=== PATIENT | male | born 1955 | race Caucasian/White ===

== ENCOUNTER 2019-12-14 12:59 | Inpatient (IN) | payer OTHER ==
[~2019-12-14] VITALS: Ht 175.3 cm; Wt 58.1 kg
[2019-12-14 13:03] VITALS: BP_SYST 149
[2019-12-14] MEDS ORDERED: OMEP20CA11 PO (14:01)
[2019-12-14] MEDS ORDERED: ALBU90AE PO (14:01)
[2019-12-14] MEDS ORDERED: FOLIC ACID 1 MG, THIAMINE HCL 100 MG, MAGNESIUM SULFATE 1 GM, MVI 10 ML in NACL 0.9% 1,... IV ONE (14:15)
[2019-12-14] MEDS ORDERED: ASPIRIN 81 MG TAB.CHEW PO ONE ×2 (14:30)
[2019-12-14 14:35] LABS: BASOPHILS # (AUTO) 0.1 K/uL (0.0-0.2); BASOPHILS % (AUTO) 1.8 % (0.0-2.0); EOSINOPHILS # (AUTO) 0.4 K/uL (0.0-0.4); EOSINOPHILS % (AUTO) 5.4 % (0.0-4.0); HEMATOCRIT 39.1 % (36-54); HEMOGLOBIN 13.2 g/dL (14.0-18.0); LYMPHOCYTES # (AUTO) 1.8 K/uL (1.0-5.5); LYMPHOCYTES % (AUTO) 24.1 % (20.5-51.5); MEAN CORPUSCULAR HEMOGLOBIN 32 pg (27-31); MEAN CORPUSCULAR HGB CONC 34 % (32-36); MEAN CORPUSCULAR VOLUME 94 fL (79.0-98.0); MONOCYTES # (AUTO) 0.6 K/uL (0.0-1.0); MONOCYTES % (AUTO) 8.7 % (1.7-9.3); NEUTROPHILS # (AUTO) 4.4 K/uL (1.8-7.7); PLATELET COUNT (AUTO) 331 K/uL (130-430); RED BLOOD CELL COUNT(AUTO) 4.14 MIL/uL (4.2-6.2); RED CELL DISTRIBUTION WIDTH 13.5 % (9.0-15.0); WHITE BLOOD COUNT (AUTO) 7.4 K/uL (4.8-10.8)
[2019-12-14 14:36] LABS: CALCIUM 8.8 mg/dL (8.4-11.0); CREATININE 0.71 mg/dL (0.55-1.30); POTASSIUM 3.9 mmol/L (3.5-5.1)
[2019-12-14 14:41] LABS: ALBUMIN 3.7 g/dL (3.4-4.8); TOTAL BILIRUBIN 1.2 mg/dL (0.0-1.0)
[2019-12-14 14:51] VITALS: BP_SYST 132
[2019-12-14 16:02] VITALS: BP_SYST 127
[2019-12-14] MEDS: THIAMINE HCL 100 MG, MAGNESIUM SULFATE 1 GM in NS 100 ML IV SCH (16:45)
[2019-12-14] MEDS: FOLIC ACID 1 MG, MVI 10 ML in NACL 0.9% 1,000 ML IV SCH (16:46)
[2019-12-14] MEDS ORDERED: LORazepam 1 MG TABLET PO PRN (17:45)
[2019-12-14] MEDS ORDERED: LORazepam 2 MG/ML VIAL IVP PRN (17:45)
[2019-12-14] MEDS ORDERED: ALBUTEROL SULFATE 0.083% 2.5 MG/3 ML VIAL.NEB INH PRN (17:45)
[2019-12-14 20:33] LABS: BILIRUBIN,URINE NEGATIVE (NEGATIVE); BLOOD, URINE 2+ (NEGATIVE); CLARITY/URINE CLEAR (CLEAR); COLOR,URINE YELLOW (YELLOW); GLUCOSE,URINE NEGATIVE (NEGATIVE); KETONES,URINE NEGATIVE (NEGATIVE); LEUKOCYTE ESTERASE ,URINE NEGATIVE (NEGATIVE); NITRITE, URINE NEGATIVE (NEGATIVE); PROTEIN URINE NEGATIVE (NEGATIVE); UROBILINOGEN,URINE 0.2 (0.2-1.0)
[2019-12-14 20:43] LABS: BACTERIA,URINE None Seen /HPF (None Seen); MUCUS,URINE None Seen /LPF (None Seen); RBC,URINE 0-3 /HPF (0-3); WBC,URINE NONE SEEN /HPF (0-3)
[2019-12-14 20:44] LABS: BARBITURATE, URINE NEGATIVE (NEG <=200); BENZODIAZEPINE, URINE NEGATIVE (NEG <=150); CANNABINOID, URINE NEGATIVE (NEG <=50); COCAINE, URINE NEGATIVE (NEG <=150); METHAMPHETAMINES SCREEN,URINE NEGATIVE (NEG <=500); OPIATE, URINE NEGATIVE (NEG <=100); PHENCYCLIDINE SCREEN,URINE NEGATIVE (NEG <=25); UR TRICYCLIC ANTIDEPRESSANTS NEGATIVE (NEG <=300); URINE AMPHETAMINE NEGATIVE (NEG <=500); URINE METHADONE NEGATIVE (NEG <=200); URINE OXYCODONE SCREEN NEGATIVE (NEG <=100); URINE PROPOXYPHENE SCREEN NEGATIVE (NEG <=300)
[2019-12-14 22:18] VITALS: BP_SYST 122
[2019-12-15] VITALS (8 sets, daily range): BP systolic 102–131
[2019-12-15 06:40] LABS: BASOPHILS # (AUTO) 0.1 K/uL (0.0-0.2); BASOPHILS % (AUTO) 1.9 % (0.0-2.0); EOSINOPHILS # (AUTO) 0.5 K/uL (0.0-0.4); EOSINOPHILS % (AUTO) 6.7 % (0.0-4.0); HEMATOCRIT 37.8 % (36-54); HEMOGLOBIN 12.8 g/dL (14.0-18.0); LYMPHOCYTES # (AUTO) 2.2 K/uL (1.0-5.5); LYMPHOCYTES % (AUTO) 27.8 % (20.5-51.5); MEAN CORPUSCULAR HEMOGLOBIN 32 pg (27-31); MEAN CORPUSCULAR HGB CONC 34 % (32-36); MEAN CORPUSCULAR VOLUME 94 fL (79.0-98.0); MONOCYTES # (AUTO) 0.8 K/uL (0.0-1.0); MONOCYTES % (AUTO) 10.1 % (1.7-9.3); NEUTROPHILS # (AUTO) 4.3 K/uL (1.8-7.7); NEUTROPHILS % (AUTO) 53.5 % (40.0-70.0); PLATELET COUNT (AUTO) 317 K/uL (130-430); RED BLOOD CELL COUNT(AUTO) 4.01 MIL/uL (4.2-6.2); RED CELL DISTRIBUTION WIDTH 13.2 % (9.0-15.0)
[2019-12-15 06:52] LABS: PROTHROMBIN TIME 10.5 SECS (9.5-12.5)
[2019-12-15 07:04] LABS: ALBUMIN 3.2 g/dL (3.4-4.8); CALCIUM 8.1 mg/dL (8.4-11.0); CREATININE 0.75 mg/dL (0.55-1.30); FREE T4 (FREE THYROXINE) 0.8 ng/dL (0.6-1.6); POTASSIUM 3.9 mmol/L (3.5-5.1); THYROID STIMULATING HORMONE 2.63 uIu/mL (0.34-4.82)
[2019-12-15] MEDS: PANTOPRAZOLE SODIUM 40 MG TAB PO SCH ×2 (09:00→10:57)
[2019-12-15] MEDS: FOLIC ACID 1 MG TABLET PO SCH ×2 (09:00→10:57)
[2019-12-15] MEDS: ASPIRIN 81 MG TABLET(ECOTRIN) PO SCH ×2 (09:00→10:57)
[2019-12-15] MEDS: CHOLECALCIFEROL (VITAMIN D3) 2,000 UNIT TABLET PO SCH ×2 (09:00→10:57)
[2019-12-15] MEDS: THIAMINE HCL 100 MG TABLET PO SCH ×2 (09:00→10:58)
[2019-12-15] MEDS: THIAMINE HCL 100 MG, MAGNESIUM SULFATE 1 GM in NS 100 ML IV SCH (16:48)
[2019-12-15] MEDS: FOLIC ACID 1 MG, MVI 10 ML in NACL 0.9% 1,000 ML IV SCH (16:49)
[2019-12-16 08:00] VITALS: BP_SYST 119
[2019-12-16] MEDS: CHOLECALCIFEROL (VITAMIN D3) 2,000 UNIT TABLET PO SCH (08:06)
[2019-12-16] MEDS: FOLIC ACID 1 MG TABLET PO SCH (08:06)
[2019-12-16] MEDS: ASPIRIN 81 MG TABLET(ECOTRIN) PO SCH (08:06)
[2019-12-16] MEDS: PANTOPRAZOLE SODIUM 40 MG TAB PO SCH (08:06)
[2019-12-16] MEDS: THIAMINE HCL 100 MG TABLET PO SCH (08:07)
[2019-12-16] MEDS ORDERED: IOHEXOL 350 mgI/mL, 150 ML INFUS..BTL IV ONE (11:30)
[2019-12-16 12:00] VITALS: BP_SYST 129
[2019-12-16] MEDS ORDERED: CLOPIDOGREL BISULFATE 75 MG TABLET PO ONE (13:30)
[2019-12-16] MEDS ORDERED: ATORVASTATIN 10 MG TABLET PO ONE (14:30)
[2019-12-16] MEDS: THIAMINE HCL 100 MG, MAGNESIUM SULFATE 1 GM in NS 100 ML IV SCH (16:25)
[2019-12-16] MEDS: FOLIC ACID 1 MG, MVI 10 ML in NACL 0.9% 1,000 ML IV SCH (16:27)
[2019-12-16 16:51] VITALS: BP_SYST 124
[2019-12-16 20:00] VITALS: BP_SYST 122
[2019-12-17 01:49] VITALS: BP_SYST 118
[2019-12-17 08:00] VITALS: BP_SYST 110
[2019-12-17] MEDS: THIAMINE HCL 100 MG TABLET PO SCH (08:44)
[2019-12-17] MEDS: PANTOPRAZOLE SODIUM 40 MG TAB PO SCH (08:44)
[2019-12-17] MEDS: FOLIC ACID 1 MG TABLET PO SCH (08:45)
[2019-12-17] MEDS: ASPIRIN 81 MG TABLET(ECOTRIN) PO SCH (08:45)
[2019-12-17] MEDS: CHOLECALCIFEROL (VITAMIN D3) 2,000 UNIT TABLET PO SCH (08:47)
[2019-12-17] MEDS ORDERED: CLOPIDOGREL BISULFATE 75 MG TABLET PO SCH (09:00)
[2019-12-17] MEDS ORDERED: ATORVASTATIN 10 MG TABLET PO SCH (09:00)
[2019-12-17 12:15] VITALS: BP_SYST 114
[2019-12-17 16:10] VITALS: BP_SYST 121
[2019-12-17] MEDS ORDERED: FOLI-43 PO (16:44)
[2019-12-17] MEDS ORDERED: CLOP75TA32 PO (16:44)
[2019-12-17] MEDS ORDERED: THIA100T73 PO (16:44)
[2019-12-17] MEDS ORDERED: LIP10 PO (16:44)
[2019-12-17] MEDS ORDERED: ASPI-1153 PO (16:44)
[2019-12-17] MEDS ORDERED: VITD2000 PO (16:44)
[2019-12-17 18:23] VITALS: BP_SYST 121
== END 2019-12-17 19:30 | disposition home health service (06) | DRG 65 ==
LOC: SED 12:59 → STU 14:15
PROVIDERS: ADMIT Internal Medicine; ATTEND Internal Medicine
DX: I63.81 Other cerebral infarction due to occlusion or stenosis of small artery (principal); E44.1 Mild protein-calorie malnutrition; Z68.1 Body mass index [BMI] 19.9 or less, adult; R47.1 Dysarthria and anarthria; F10.10 Alcohol abuse, uncomplicated; J44.9 Chronic obstructive pulmonary disease, unspecified; F17.210 Nicotine dependence, cigarettes, uncomplicated; D64.9 Anemia, unspecified; K80.20 Calculus of gallbladder without cholecystitis without obstruction; I65.29 Occlusion and stenosis of unspecified carotid artery; Z60.2 Problems related to living alone; G43.909 Migraine, unspecified, not intractable, without status migrainosus; K21.9 Gastro-esophageal reflux disease without esophagitis; Z71.6 Tobacco abuse counseling; Z79.899 Other long term (current) drug therapy; Z79.82 Long term (current) use of aspirin
CPT/HCPCS: 36415; 70450-TC; 70496; 70498; 70551; 71250-TC; 76700-TC; 80053; 80061; 80307; 81000-TC; 82105; 82140-TC; 82306; 83036; 83735-TC; 84439; 84443-TC; 84484; 85025; 85610-TC; 85730-TC; 92523; 92610-GN; 93306; 93880; 97163; 99291; G0378; J3411; J3475; J3490; J7030; J7613; Q9967